=== PATIENT | female | born 1970 | race Caucasian/White ===

== ENCOUNTER → 2023-07-14 03:19 | Outpatient (CLI) | payer MEDICAID, SELFPAY ==
--- NOTE | 2023-07-14 | DI.MRI_ITS ---
Exam(s) MR UPPER JOINT RT WO EXAM: MR UPPER JOINT RT WO CLINICAL HISTORY: PAIN RT SHOULDER, M25.511, EVAL ROTATOR CUFF/LABRUM TECHNIQUE: Multiplanar multisequence MRI of the shoulder was performed. COMPARISON: DX XR SHOULDER 2V OR MORE RT* from 06/23/2023 FINDINGS: MARROW:There is no evidence of fracture, Hill-Sachs deformity, nor ominous osseous lesions. GLENOHUMERAL JOINT: No joint effusion nor obvious loose intra-articular bodies. No chondral defects. No osteophytes. No degenerative subarticular cysts. ROTATOR CUFF MECHANISM: AC JOINT/ACROMIUM: AC joint exhibits mild degenerative changes. No impingement at this level seen.. There is no evidence of os acromiale. Supraspinatus: There is a full-thickness tear in the supraspinatus tendon immediately above the great er tuberosity insertion site.. No retraction of the musculotendinous junction evident. No muscle at rophy. Infraspinatus: Intact. No evidence of tear nor muscle atrophy. Teres Minor: Intact. No evidence of tear nor muscle atrophy. Subscapularis/anterior cuff: Intact. No abnormal signal at the level of the multipennate insertional fibers. No significant tear nor atrophy. BICEPS TENDON: Exhibits normal position within the intertubercular groove. No evidence of tear. No tenosynovitis. LABRUM: No labral tear identified. No evidence of paralabral cyst. QUADRILATERAL SPACE: No evidence of mass in the region of the axillary nerve and dorsal circumflex hu meral vessels. Visualized triceps muscle at this level appears unremarkable. IMPRESSION: 1. There is an area of full-thickness tear of the rotator tear cuff supraspinatus tendon just above t he greater tuberosity insertion site. There is fluid signal extending from the intra-articular hawk rtment to the subacromial bursa space at this level. There is no retraction of the musculotendinous junction. There is no muscle atrophy. 2. Other 3 muscles of the rotator cuff mechanism are intact. 3. No obvious labral tears evident. 4. No prominent glenohumeral joint effusion. No loose intra-articular bodies. DATA REPOSITORY:
== END ==
PROVIDERS: Visit Provider Physician Assistant
DX: M75.121 Complete rotator cuff tear or rupture of right shoulder, not specified as traumatic (principal)
CPT/HCPCS: 73221

== ENCOUNTER → 2023-07-24 00:29 | Outpatient (CLI) | payer MEDICAID, SELFPAY ==
--- NOTE | 2023-07-24 | DI.MRI_ITS ---
Exam(s) MR CERVICAL SPINE WO EXAM: MR CERVICAL SPINE WO CLINICAL HISTORY: CERVICAL MYELOPATHY, G95.9 TECHNIQUE: Multiplanar multisequence MRI of the cervical spine was performed without intravenous con trast. COMPARISON: No exams were available for comparison FINDINGS: CERVICOMEDULLARY JUNCTION: Intact with no evidence of cerebellar tonsillar ectopia. No obvious abnor mality of the odontoid process. No evidence of Chiari 1 malformation. CERVICAL SPINAL CORD: There is no abnormal signal in the cervical spinal cord and no evidence of foca l cord atrophy nor focal cord swelling. OSSEOUS:There are no cervical fractures evident. No significant osseous lesions in the cervical vert ebrae. Some straightening of the cervical spinal curvature is noted. INDIVIDUAL LEVELS: C2-3: Mild central annular bulging without a dominant disc herniation. Central canal dimensions are within normal limits. Some moderate degenerative changes noted in the left facet joint and no signif icant degenerative changes in the right facet joint. No foraminal stenosis on either side. C3-4: Mild disc space narrowing. Mild annular bulging without a dominant disc herniation. Central c anal dimensions are lower normal. There are moderate degenerative changes in the left facet joint an d mild degenerative changes in the right facet joint. There is no significant foraminal stenosis on either side. C4-5: There is chronic advanced disc space narrowing at this level. Anterior osseous lipping noted. Posteriorly there is symmetrical annular bulging without a dominant disc herniation. Central canal dimensions are normal. There is minimal facet arthropathy at this level. No significant foraminal s tenosis on either side at this level. C5-6: This level exhibits chronic advanced disc space narrowing. No disc herniation. No central can al stenosis. Moderate degenerative changes in the left facet joint mild degenerative changes in the right facet joint. Mild foraminal stenosis on the right side at this level without foraminal stenosi s on the left side. C6-7: This level exhibits advanced chronic disc space narrowing. No evidence of disc herniation or c entral canal stenosis. No facet arthropathy on the left side. Mild facet arthropathy on the right s alesia. No foraminal stenosis on the left side. Minimal foraminal stenosis on the right side. C7-T1: No disc herniation nor central canal stenosis. No facet arthropathy.No foraminal stenosis. IMPRESSION: 1. Multilevel findings as described individually above. However, there is no dominant disc herniatio n, prominent canal stenosis, nor prominent foraminal stenosis. There is mild asymmetric foraminal st enosis at a few levels.. 2. No fractures nor listhesis nor ominous osseous lesions. However, there is some straightening of t he cervical curvature which is probably related to chronic muscle spasm. DATA REPOSITORY:
== END ==
PROVIDERS: Visit Provider Family Medicine
DX: G95.9 Disease of spinal cord, unspecified (principal); M48.02 Spinal stenosis, cervical region
CPT/HCPCS: 72141

== ENCOUNTER 2023-11-26 10:04 | Day surgery (SDC) | payer MEDICAID, SELFPAY ==
[2023-11-26] VITALS (45 sets, daily range): BP systolic 106–149; BP diastolic 66–95; PULSE 72–88; RESP 9–28; TEMP 35.9–36.6; O2SAT 90–98; BMI 26.9
--- NOTE | 2023-11-26 07:56 | W.PM.DSUDISC ---
Date of service: 11/26/23 Time of Service: 14:00 Discharge Plan Disposition Patient Disposition: Home Condition: Stable Discharge Details Attending Provider: Humphrey Rico Home Meds and New Rx's Prescriptions: New naproxen 250 mg tablet 250 - 500 mg PO BID PRN (Reason: moderate pain and swelling) Qty: 40 0RF oxycodone 5 mg tablet 5 - 10 mg PO .q4-6h PRN (Reason: severe pain) Qty: 18 0RF Continued clonazepam 0.5 mg tablet 0.5 mg PO QID sertraline 200 mg capsule 200 mg PO DAILY loratadine 10 mg tablet 10 mg PO DAILY omeprazole 20 mg capsule,delayed release(DR/EC) 20 mg PO DAILY rosuvastatin 5 mg tablet 5 mg PO DAILY Acidophilus Capsule 10 mg PO DAILY valacyclovir 500 mg tablet 500 mg PO DAILY Discharge Instructions Additional Instructions: Surgery: Right shoulder arthroscopy with rotator cuff repair (supraspinatus), biceps tenodesis, extensive debridement, and subacromial decompression. Activity: For 6 weeks, you should keep your arm at your side in a neutral position at all times except for physical therapy. Do not try to lift or raise your arm using your own muscles. You should use the sling whenever you are out of the house. At home it is best to remove the sling and rest the arm on a pillow at your side or support the operative side with your other hand. You may allow the arm to dangle at your side. A physical therapy prescription will be sent electronically to begin in about 3 weeks. Standard protocol. Prescriptions: Naproxen 250 mg take 1-2 every 12 hours with a meal as needed for moderate pain Oxycodone 5 mg take 1-2 every 4-6 hours as needed for severe pain You may use [id number] Tylenol (acetaminophen) as needed for mild pain. These pain medications may be taken all at once or in different combinations as needed. Also, recommend Colace (docusate) as a stool softener as surgery and pain medicine cause constipation. You may try [id number] diphenhydramine (Benadryl) 25-50 mg nightly as a sleep aid Dressings: Remove shoulder bandage after 3 days. Leave the sticky Steri-Strips in place until they fall off or remove them after you shower. Cover the incisions with Band-Aids or leave them open to air. You may shower after 5 days. Follow-up: 10-[address] Rico You may take off the leg compression stockings this evening at home. You may also leave them on a few days longer if you have a history of leg swelling or edema. Let us know right away if you develop any redness, drainage, fevers, chest pain, or trouble breathing. Do not drink alcohol or drive for at least 24 hours after anesthesia. Please call the office during business hours with any questions or concerns Discharge Orders Discharge Orders: Discharge Order (Routine); Ordered 11/26/23 Ordered By: Janine Bragg DS: Diagnosis Discharge Diagnosis (1) Traumatic tear of right rotator cuff: Status: Acute (2) SLAP lesion of right shoulder: Status: Acute
[2023-11-26] MEDS: Lactated Ringers 1,000 ML 30 ML IV (11:35)
--- NOTE | 2023-11-26 11:48 | W.ANESPRE ---
General Info Date of Service Date Performed: 11/26/23 Height: 5 ft 6 in Weight: 75.8 kg Body Mass Index (BMI): 26.9 Surgical Procedure: Operation Date: 11/26/23 12:40 Proposed Procedure Side Surgeon p Shoulder Rotator Cuff Arthroscopic w/Extensive Debridement, Biceps Tenodesis,Subacromial Decompression Right Humphrey Rico MD Actual Procedure Side Surgeon p Shoulder Rotator Cuff Arthroscopic w/Extensive Debridement, Biceps Tenodesis,Subacromial Decompression Right Humphrey Rico MD Pre-Op Diagnosis Post-Op Diagnosis (1) Traumatic tear of right rotator cuff: (2) SLAP lesion of right shoulder: Meds Allergies and Home Medications Allergies Allergy/AdvReac Type Severity Reaction Status Date / Time Latex, Natural Rubber Allergy Intermediate Skin Rash Verified 11/26/23 10:21 Sulfa (Sulfonamide Allergy Intermediate Hives Verified 11/26/23 10:21 Antibiotics) scopolamine AdvReac Hallucinations Unverified 11/26/23 10:21 per pt Home Medication ?Medication ?Instructions ?Recorded Lactobacillus acidophilus 10 mg PO DAILY 11/10/23 (Acidophilus capsule) clonazepam 0.5 mg tablet 0.5 mg PO QID 11/10/23 loratadine 10 mg tablet 10 mg PO DAILY 11/10/23 omeprazole 20 mg capsule,delayed 20 mg PO DAILY 11/10/23 release rosuvastatin 5 mg tablet 5 mg PO DAILY 11/10/23 sertraline 200 mg capsule 200 mg PO DAILY 11/10/23 valacyclovir 500 mg tablet 500 mg PO DAILY 11/10/23 Current Visit Medications: Current Medications Generic Name Dose Route Start Last Admin Trade Name Fariba PRN Reason Stop Dose Admin Ringer's Solution 1,000 mls @ 30 mls/hr 11/26/23 06:00 11/26/23 11:35 IV 12/25/23 23:59 30 mls/hr INFUSION YARIEL Administration Cefazolin Sodium/Dextrose 2 gm in 50 mls @ 100 mls/hr 11/26/23 06:00 Ancef Duplex IVPB 11/26/23 16:00 PREOP YARIEL Tranexamic Acid/Sodium Chloride 1,000 mg in 100 mls @ 600 mls/hr 11/26/23 06:00 IVPB 11/26/23 16:00 PREOP YARIEL IV Miscellaneous Supplies 1 each 11/26/23 06:00 Iv Access IV 12/25/23 23:59 DIRECTED YARIEL Oxycodone HCl 0 mg 11/26/23 07:56 Oxycodone 5 Mg Tab PO 12/26/23 07:55 Q3H PRN PRN Pain Sodium Chloride 0 ml 11/26/23 06:00 Normal Saline Flush 10 Ml Syr IV 12/25/23 23:59 PRN PRN Sodium Chloride 0 ml 11/26/23 06:00 Normal Saline 10 Ml Vial IJ 12/25/23 23:59 DIRECTED PRN Sterile Water 0 ml 11/26/23 06:00 Water,Injection,Sterile 10 Ml Vial IJ 12/25/23 23:59 DIRECTED PRN PFSH Active Problems Active Problems: Problem Status Onset Code SLAP lesion of right shoulder Acute S43.431A Traumatic tear of right rotator cuff Acute S46.011A Medical History Medical History Dermatofibrosarcoma Nephrolithiasis Chronic use of benzodiazepine for therapeutic purpose Anxiety and depression GERD (gastroesophageal reflux disease) PTSD (post-traumatic stress disorder) Surgical History Surgical History History of cystoscopy History of tubal ligation History of laparoscopic cholecystectomy History of appendectomy History of esophagogastroduodenoscopy (EGD) History of shoulder surgery left Tobacco Smoking/Tobacco Use Status: Current every day Tobacco Type: cigarettes Smoking cigarettes per day: 15 Alcohol Alcohol Intake: never Substance Use Substance use: Occasionally Substance use type: marijuana Details: Smoked marijuana last: 11/24 @ 1830 Vital Signs and Lab Results Vital Signs Most Recent Vital Signs in EMR: Most Recent Vital Signs Temp Pulse Resp BP Pulse Ox 36 C L 88 16 144/89 H 96 11/26/23 11:06 11/26/23 11:06 11/26/23 11:06 11/26/23 11:06 11/26/23 11:06 Lab Results Blood Type / Crossmatch: No Data to Display Complete Blood Count: No Data to Display Complete Metabolic Panel: No Data to Display Liver Function Panel: No Data to Display Coagulation Panel: No Data to Display Cardiac Panel: No Data to Display Arterial Blood Gas: No Data to Display Venous Blood Gas: No Data to Display Pancreas Panel: No Data to Display Thyroid Panel: No Data to Display Infectious Disease: No Data to Display Blood Cultures: No Data to Display Toxicology Panel: No Data to Display Panel: No Data to Display Anesthesia Assessment and Plan Anesthesia History Personal History: PONV Family History: No Family History of Anesthesia Complications Exercise Tolerance Exercise Tolerance: Metabolic Equivalents>4 Pertinent Negatives Pertinent Negatives: No Symptoms of GERD (Well controlled GERD with omeprazole ), No Major Cardiovascular Symptoms or Complaints, No Major Pulmonary Symptoms or Complaints and No History of CVA/TIA Cardiac & Pulmonary Exam Cardiac Exam: Normal S1/S2 Heart Sounds Pulmonary Exam: Clear Bilateral Breath Sounds Implantable Cardiac Device Does patient have a Pacemaker or an ICD?: No Airway Exam Known Difficult Airway: No Mallampati Class: 2 Mouth Opening: Normal (> 3cm) Thyromental Distance: Greater than 3 cm Neck Range of Motion: Full ROM Neck Circumference: Normal Teeth Condition: Normal Dentition ASA Classification ASA Score: ASA 2 Emergency Case?: No NPO Status NPO Status: NPO Clears >2 hours, Solids >8 hours Status Status: Not Per Patient and Other (tubal ligation) Anesthesia Plan Resuscitation Status: Full Code Anesthesia Technique: General Anesthesia Airway Planned: Endotracheal Tube Monitors Used: Standard Monitors and SedLine Preoperative Comments:: Significant PMH: Anxiety, GERD - well controlled on omeprazole, Chronic benzo use, PONV Plan: Brachial plexus block, GETA - Prop TIVA, adequate IV access, phenylephrine infusion, sedline
--- NOTE | 2023-11-26 12:33 | W.ANESNERVE ---
Nerve Block Single Injection Procedure Date and Time Date Performed: 11/26/23 Procedure Start: 12:12 Location Where Procedure Performed Procedure Location: Day Surgery Unit Reason Performed: Postoperative Analgesia Requesting Provider: Humphrey Rico Timeout Performed Timeout Performed: Yes Monitoring Used ECG, Blood Pressure, SpO2 and See EMR for corresponding vital signs Sterility Sterility: Hand Hygiene, Surgical Cap, Surgical Mask, Sterile Gloves, Sterile Drape/Sheet, Eye Protection and Chlorhexidine Sedation Given During Procedure Sedation Given (Indicate Dose Given): Versed IV Dose:: 2mg Patient Mental Status Patient Mental Status: Sedate with meaningful communication Nerve Block 1st Nerve Block: Laterality: Right Block Type: Interscalene Ultrasound Image Saved?: Yes Needle / Catheter Used: 100mm SonoPlex II Local Anesthetic Bolus (Indicate Dose Given): Lidocaine used for local infiltration of skin, Injected in 3-5ml increments after negative blood aspiration, Bupivacaine 0.5% Dose:: 10ml and Exparel Dose:: 10ml Additives (Indicate Dose Given): None Ultrasound: Sterile probe cover and gel used Nerve Stimulator: Supplement to Ultrasound use and No twitch or parasthesia noted < 0.5 mA Paresthesia: None Procedure Tolerated: No Complications and Patient tolerated well Procedure Outcome: Successful Performed By: Gian Velez Supervised By: Kiera Velazquez
[2023-11-26] MEDS: ceFAZolin 2 GM/50 ML BAG IVPB (13:00)
[2023-11-26] MEDS: TRANEXAMIC ACID/SOD. CHL. 1,000 MG/100 ML BAG 600 MG IVPB (13:10)
[2023-11-26] MEDS: Bupivacaine 0.25% Pres-Free W/EPI 30 ML VIAL (13:55)
[2023-11-26] MEDS: EPINEPHrine 10 MG/10 ML ML (14:33)
[2023-11-26] MEDS: HYDROmorphone 2 MG/ML SYR IVP (15:25)
[2023-11-26] MEDS: oxyCODONE 5 MG TAB PO (16:20)
--- NOTE | 2023-11-26 16:55 | W.PM.OP ---
Date of service: 11/26/23 Time of Service: 14:00 Operative Note Operative Note DATE OF PROCEDURE: 11/26/23 PRE-OP DIAGNOSIS: Right: 1. Rotator cuff tear 2. SLAP tear 3. Stiffness 4. Impingement POST-OP DIAGNOSIS: same PROCEDURE: Right: 1. Rotator cuff repair, CPT# 72293. This involved repair of the supraspinatus using anchors and sutures to reattach the rotator cuff back to the footprint of the greater tuberosity. 2. Arthroscopic biceps tenodesis, CPT# 55288. This involved arthroscopically suturing and reattaching the long head of the biceps tendon to the proximal humerus at the superior margin of the bicipital groove with a screw at the correct tension. 3. Extensive debridement, CPT# 77062. This involved using arthroscopic hand instruments, power instruments, and radiofrequency instruments to release the long head of the biceps tendon and debride areas of SLAP tearing, posterior labral tearing, rotator interval synovitis, and complete anterior capsular [facility] release. 4. Subacromial decompression with partial acromioplasty, CPT# 04469. This involved using arthroscopic power instruments and a radiofrequency wand to complete a bursectomy and smooth the undersurface of the acromion. 5. Manipulation under anesthesia, CPT #63462. This involved gentle guided direction to restore full range of motion prior to surgery with excellent releases and external rotation and forward elevation. The executive assistant to general counsel was medically required in order to help assist in techniques above, which require positioning the arm, holding the arthroscope, and manipulating multiple instruments and sutures at the same time. This cannot be done without the help of an experienced executive assistant to general counsel. SURGEON: Humphrey Rico BEREAVEMENT COORDINATOR: Janine Bragg ANESTHESIA TYPE: Local By Surgeon, General LMA/ETT and Primary Nerve Block Refer to Anesthesia Record ESTIMATED BLOOD LOSS: 5 PATHOLOGY: none sent COMPLICATIONS: None Patient was transported to: PACU Patient's condition: stable Implants: Arthrex: 4.75mm SwiveLocks x 4 Indications: The patient was diagnosed with the above conditions and appropriately indicated for surgical intervention. Please see complete medical record for details. Findings: Exam under anesthesia: Moderately significant stiffness in external rotation maybe 30 degrees, and forward elevation to about 95 degrees. Abduction 90 degrees. Internal rotation to about 60 degrees. Full range of motion without instability post?manipulation. Glenohumeral joint: Minor upper margin subscapularis partial tearing. Released capsule anteriorly and inferiorly. Absent anterior labrum, cord?like [facility] variant. Bucket handle unstable biceps anchor SLAP tear. Posterior labrum fraying. Intact articular supraspinatus by the thinnest margin. Intact articular infraspinatus. Subacromial space: Only mild bursitis, laterally impinging narrowing focally acromion. Nearly full-thickness complete supraspinatus rotator cuff tear. Procedure Description: In the operating room, general anesthesia was induced. Bilateral shoulders were examined. The patient was positioned in the beachchair position. The right shoulder showed known stiffness, gentle steady guided pressure using a short lever arm was used to correct forward elevation, and then working gradually alternating to external rotation and forward elevation with excellent releases felt without much pressure readily restoring full forward elevation past under 40 arteries, extra rotation past 70 degrees. Stretching and these endpoints were held and exaggerated gently to confirm complete release is done. No real release was needed in abduction or internal rotation. All bony prominences were well-padded. Preoperative antibiotics were administered. The shoulder was prepped and draped in the usual sterile fashion. The correct patient, procedure, and side of the procedure were all verified prior to incision. Starting through the posterior portal a standard complete diagnostic arthroscopy was performed of the glenohumeral joint including inspection of the long head of the biceps, anterior and superior labrum, subscapularis tendon, supraspinatus and infraspinatus tendons, and axillary recess. The glenoid and humeral head cartilage as well as the posterior labrum were inspected from an anterior viewing portal. Significant findings and interventions noted above. An all-arthroscopic suprapectoral biceps tenodesis was performed through an anterior portal using a Loop N Tack method with a SutureTape FiberLink cinched around and through the tendon. The biceps was tenotomized from the labrum and repair suture withdrawn maintain out the anterior cannula for later repair with the rotator cuff. Starting through the posterior portal, the arthroscope was directed into the subacromial space. A lateral 50 yard line lateral portal was created. A combination of power instruments and a radiofrequency ablator were used to debride bursitis anteriorly, posteriorly, and laterally as well as expose and smooth bone spurring on the undersurface of the acromion. The coracoacromial ligament was partially released. The bursectomy was completed viewing laterally and working from posteriorly and the rotator cuff was thoroughly inspected with findings noted above. The supraspinatus had a large void through 99% of the tissue with the thinnest veil of tissue on the medial articular margin. The tear involves the entire supraspinatus from anterior to posterior across the greater tuberosity with intact infraspinatus coming around more posteriorly. Started just posterior to the biceps groove. There was excellent tissue still present, which was readily reducible over the greater tuberosity without much tension at all. The greater tuberosity was thoroughly prepared to optimize bone tendon healing with the tendon edges lightly debrided as well. The thin tendon veil was completed to a full-thickness tear in order to secure all the layers for best repair. Working through this tear of the biceps tendon repair suture was also retrieved into subacromial space. At the anterior medial margin the undersized punch was used to place a 4.75 mm SwiveLock anchor loaded with FiberTape and also loaded with appropriate tension on the biceps tenodesis repair suture completed the tenodesis. Another SwiveLock load with FiberTape was placed at the posterior medial margin. The self retrieving scorpion suture passer was used to shuttle the repair FiberTape's at the appropriate levels through the medial rotator cuff tissue, shuttled using a FiberLink. A single repair tape from each medial row anchor was brought out laterally. The rigid Carmen cannula insert was used to confirm optimal tissue reduction in arm position. The scorpion was used to place a suture tape FiberLink centrally in the supraspinatus tear and secured with each of the tapes and appropriate tension to an anterior lateral row SwiveLock anchor. The remaining tapes were brought out laterally, arm position adjusted for a posterior anchor and an additional suture tape FiberLink placed posterior to the bridge construct incorporating any additional supraspinatus and infraspinatus and securing the repair more posteriorly with the repair sutures loaded and appropriately tensioned to the posterior lateral anchor. The repair had excellent tissue coverage, compression, and reduction across the majority of the greater tuberosity. It was stable through testing and motion. The shoulder was drained of arthroscopic fluid. All portal sites were copiously irrigated. These incisions were closed using 3-0 Monocryl in a buried fashion and then covered with Mastisol, Steri-Strips, Xeroform, dry gauze, and ABDs. The dressings were covered and secured with Medipore tape. The operative extremity was placed into a sling for immobilization. The patient awoke from anesthesia without complication and was transferred to the recovery room in a stable condition.
--- NOTE | 2023-11-26 17:16 | W.ANESPOSTOP ---
Postoperative Evaluation Date, Time and Location Date Performed: 11/26/23 Time Performed: 16:52 Patient Location: Day Surgery Unit Vital Signs Most Recent Imported Vital Signs: Most Recent Vital Signs Temp Pulse Resp BP Pulse Ox 36.6 C 79 22 136/80 92 11/26/23 15:50 11/26/23 15:50 11/26/23 15:51 11/26/23 15:50 11/26/23 15:51 Pain Score Most Recent Pain Score: Most Recent Pain Score Pain Level 8 11/26/23 15:50 Assessment Mental Status: Awake (Alert & Oriented to Patient Baseline) Airway and Respiratory Function: Patent airway with normal (patient baseline) respiratory exam Cardiovascular Function: Hemodynamically Stable Hydration Status: Adequately Hydrated Nausea & Vomiting: No Nausea or Vomiting Pain: Pain is tolerable per patient Peripheral Nerve Block: Regional nerve block not resolved at time of post operative discharge Postoperative Comments:: Doing well, reports pain to anterior shoulder. Oral pain medicine has been giving and reports pain is tolerable.
== END 2023-11-26 17:17 | disposition home or self-care (01) ==
LOC: SUR 10:04
PROVIDERS: Visit Provider Student in an Organized Health Care Education/Training Program
PROC: (CPT 29827; principal; 2023-11-26 12:30)
DX: S46.011A Strain of muscle(s) and tendon(s) of the rotator cuff of right shoulder, initial encounter (principal); S43.431A Superior glenoid labrum lesion of right shoulder, initial encounter; F41.8 Other specified anxiety disorders; F43.10 Post-traumatic stress disorder, unspecified; K21.9 Gastro-esophageal reflux disease without esophagitis; Z79.899 Other long term (current) drug therapy; M75.41 Impingement syndrome of right shoulder; M75.51 Bursitis of right shoulder; M25.611 Stiffness of right shoulder, not elsewhere classified; F17.210 Nicotine dependence, cigarettes, uncomplicated; W19.XXXA Unspecified fall, initial encounter; G89.18 Other acute postprocedural pain
CPT/HCPCS: 29827; 29828; 29823; 29826; 64415; 76942; C9290; J0131; J0665; J0690; J1100; J1171; J1885; J2250; J2371; J2405; J2704; J3475